=== PATIENT | female | born 1955 | race African-American/Black ===

== ENCOUNTER 2020-01-24 07:15 | Emergency (ER) | payer MEDICAID ==
[~2020-01-24] VITALS: Ht 165.1 cm; Wt 113.4 kg
[~2020-01-24 07:15] MED LIST: ATEN50TA PO; CARI250T PO; HYDR-4833 PO; LIS20T PO; METF-372 PO; OMEP20CA74 PO; PAR20T PO
[2020-01-24 07:29] VITALS: BP 137/65
[2020-01-24] MEDS ORDERED: KETOROLAC TROMETH 60MG/2ML VIAL IM ONE (08:15)
== END 2020-01-24 08:44 | disposition home or self-care (01) ==
LOC: ER 07:15
DX: M23.8X1 Other internal derangements of right knee (principal); M17.11 Unilateral primary osteoarthritis, right knee; F17.210 Nicotine dependence, cigarettes, uncomplicated; F41.9 Anxiety disorder, unspecified; J45.909 Unspecified asthma, uncomplicated; E11.9 Type 2 diabetes mellitus without complications; I10 Essential (primary) hypertension; Z90.49 Acquired absence of other specified parts of digestive tract; Z79.84 Long term (current) use of oral hypoglycemic drugs; Z79.899 Other long term (current) drug therapy
CPT/HCPCS: 73562; 96372; 99283; J1885

== ENCOUNTER 2021-03-17 11:39 | Emergency (ER) | payer MEDICAID ==
[~2021-03-17] VITALS: Ht 167.6 cm; Wt 112.0 kg
[2021-03-17 14:06] VITALS: BP 149/81
== END 2021-03-17 14:39 | disposition home or self-care (01) ==
LOC: ER 11:39
DX: S29.012A Strain of muscle and tendon of back wall of thorax, initial encounter (principal); S63.616A Unspecified sprain of right little finger, initial encounter; W01.0XXA Fall on same level from slipping, tripping and stumbling without subsequent striking against object, initial encounter; Y93.29 Activity, other involving ice and snow; Y92.89 Other specified places as the place of occurrence of the external cause; Y99.8 Other external cause status
CPT/HCPCS: 71101; 73130

== ENCOUNTER 2021-08-02 11:13 | Emergency (ER) | payer MEDICAID ==
[~2021-08-02] VITALS: Ht 167.6 cm; Wt 111.1 kg
[2021-08-02 14:33] VITALS: BP 166/76
[2021-08-02] MEDS ORDERED: HYDROcodone-ACET 10/325MG TAB PO ONE (15:00)
== END 2021-08-02 15:02 | disposition home or self-care (01) ==
LOC: ER 11:13
DX: S16.1XXA Strain of muscle, fascia and tendon at neck level, initial encounter (principal); M47.812 Spondylosis without myelopathy or radiculopathy, cervical region; I10 Essential (primary) hypertension; J45.909 Unspecified asthma, uncomplicated; G89.29 Other chronic pain; M54.9 Dorsalgia, unspecified; F17.210 Nicotine dependence, cigarettes, uncomplicated; Z90.49 Acquired absence of other specified parts of digestive tract; Z79.899 Other long term (current) drug therapy; X58.XXXA Exposure to other specified factors, initial encounter; Y93.89 Activity, other specified; Y92.89 Other specified places as the place of occurrence of the external cause; Y99.8 Other external cause status
CPT/HCPCS: 72040

== ENCOUNTER 2021-08-23 03:12 | Emergency (ER) | payer MEDICAID ==
[~2021-08-23] VITALS: Ht 167.6 cm; Wt 99.8 kg
[2021-08-23] MEDS ORDERED: hydrALAZINE HCL 20 MG/ML VL IV ONE ×2 (06:45→09:15)
[2021-08-23] MEDS ORDERED: SODIUM CHLORIDE 0.9% 1,000 ML IV ONE (06:45)
[2021-08-23 07:10] LABS: Basophils # (auto) 0.1 10 ^3/uL (0-0.2); Basophils % (auto) 1.2 % (0.0-2.0); Eosinophils # (auto) 0.3 10 ^3/uL (0-0.8); Eosinophils % (auto) 4.7 % (0.0-7.0); Hematocrit 35.7 % (36.0-46.0); Hemoglobin 11.9 g/dL (12.2-16.2); Lymphocytes % (auto) 32.5 % (10.0-50.0); Mean Corpuscular Hemoglobin 27.7 pg (28.0-32.0); Mean Corpuscular Hgb Conc. 33.4 g/dL (32.0-36.0); Mean Corpuscular Volume 82.9 fL (80.0-100.0); Monocytes # (auto) 0.4 10 ^3/uL (0-1.3); Monocytes % (auto) 6.9 % (0.0-12.0); Neutrophils # (auto) 3.3 10 ^3/uL (1.6-8.6); Neutrophils % (auto) 54.7 % (37.0-80.0); Nucleated Red Blood Cells % 0.2 %; Red Blood Cells 4.31 10^6/uL (4.0-5.20); Red Cell Distribution Width 15.5 % (11.8-14.3)
[2021-08-23 07:25] LABS: Albumin 3.3 g/dL (3.4-5.0); BUN/Creatinine Ratio 13.2; Calcium 8.8 mg/dL (8.5-10.1); Potassium 4.4 mmol/L (3.5-5.1)
[2021-08-23 07:27] LABS: Bilirubin, Total 0.5 mg/dL (0.2-1.0); Total Protein 7.1 g/dL (6.4-8.2)
[2021-08-23 07:45] LABS: Urine Bacteria NONE SEEN /hpf (None Seen); Urine Blood Negative /uL (Negative); Urine Specific Gravity 1.006 (1.001-1.035); Urine WBC <1 /hpf (0 - 5)
[2021-08-23] MEDS ORDERED: LABETALOL HCL 5 MG/ML 4ML SYRINGE IV ONE (09:15)
[2021-08-23 10:11] VITALS: BP 185/81
== END 2021-08-23 10:14 | disposition home or self-care (01) ==
LOC: EDUNIT# 03:12 → ER 03:12 → EDBD 03:12 → ER 10:14
DX: I10 Essential (primary) hypertension (principal); E11.9 Type 2 diabetes mellitus without complications; F17.210 Nicotine dependence, cigarettes, uncomplicated; J45.909 Unspecified asthma, uncomplicated; Z90.49 Acquired absence of other specified parts of digestive tract; Z79.899 Other long term (current) drug therapy
CPT/HCPCS: 36415; 71045; 80053; 81001; 84484; 85025; 85379; 96361; 96374; 96376; 99284; J0360; J7030

== ENCOUNTER 2022-06-18 07:29 | Emergency (ER) | payer MEDICAID ==
[~2022-06-18] VITALS: Ht 167.6 cm; Wt 110.3 kg
[2022-06-18 08:10] LABS: Basophils # (auto) 0 10 ^3/uL (0-0.2); Basophils % (auto) 0.5 % (0.0-2.0); Eosinophils # (auto) 0.2 10 ^3/uL (0-0.8); Eosinophils % (auto) 2.8 % (0.0-7.0); Hematocrit 41.8 % (36.0-46.0); Hemoglobin 14.1 g/dL (12.2-16.2); Lymphocytes # (auto) 1.8 10 ^3/uL (0.4-5.4); Lymphocytes % (auto) 25.1 % (10.0-50.0); Mean Corpuscular Hemoglobin 27.9 pg (28.0-32.0); Mean Corpuscular Hgb Conc. 33.7 g/dL (32.0-36.0); Monocytes # (auto) 0.5 10 ^3/uL (0-1.3); Monocytes % (auto) 7.2 % (0.0-12.0); Neutrophils # (auto) 4.6 10 ^3/uL (1.6-8.6); Neutrophils % (auto) 64.4 % (37.0-80.0); Nucleated Red Blood Cells % 0.3 %; Red Blood Cells 5.04 10^6/uL (4.0-5.20); Red Cell Distribution Width 14.6 % (11.8-14.3); White Blood Cell 7.2 10^3/uL (4.4-10.8)
[2022-06-18 08:28] LABS: Calcium 9.4 mg/dL (8.5-10.1); Potassium 3.5 mmol/L (3.5-5.1)
[2022-06-18 08:32] LABS: Bilirubin, Total 0.4 mg/dL (0.2-1.0); Total Protein 8.2 g/dL (6.4-8.2)
[2022-06-18 08:33] LABS: Urine Bacteria FEW /hpf (None Seen); Urine Blood TRACE /uL (Negative); Urine Specific Gravity 1.006 (1.001-1.035); Urine WBC <1 /hpf (0 - 5)
[2022-06-18 10:40] VITALS: BP 130/75
== END 2022-06-18 10:41 | disposition home or self-care (01) ==
LOC: ER 07:29
DX: R10.33 Periumbilical pain (principal); R11.2 Nausea with vomiting, unspecified; I10 Essential (primary) hypertension; E11.9 Type 2 diabetes mellitus without complications; J45.909 Unspecified asthma, uncomplicated; F17.210 Nicotine dependence, cigarettes, uncomplicated; Z79.899 Other long term (current) drug therapy
CPT/HCPCS: 36415; 74176; 80053; 81001; 83690; 84484; 85025; 93005

== ENCOUNTER 2023-12-27 07:52 | Emergency (ER) | payer MEDICARE, MEDICAID ==
[~2023-12-27] VITALS: Ht 167.6 cm; Wt 110.6 kg
[2023-12-27 08:17] VITALS: BP 141/74; PULSE 74; RESP 18; TEMP 98.4; O2SAT 96
[2023-12-27] MEDS ORDERED: SENN-58 PO (10:01)
[2023-12-27] MEDS: MAGNESIUM CITRATE SOLUTION 300 ML BTL PO ONE (10:13)
== END 2023-12-27 10:28 ==
LOC: ER 07:52
DX: K59.01 Slow transit constipation (principal); J45.909 Unspecified asthma, uncomplicated; E11.9 Type 2 diabetes mellitus without complications; I10 Essential (primary) hypertension; F17.210 Nicotine dependence, cigarettes, uncomplicated; Z90.49 Acquired absence of other specified parts of digestive tract
CPT/HCPCS: 74176

== ENCOUNTER 2024-06-19 11:14 | Inpatient (IN) | payer MEDICARE, MEDICAID ==
[~2024-06-19] VITALS: Ht 167.6 cm; Wt 107.0 kg
[~2024-06-19 11:14] MED LIST changes: +SENN-58 PO
--- NOTE | 2024-06-19 11:29 | ED.PDOC ---
HPI (NEURO) HPI Comments 68 y/o F, with PMHX of HTN, DM, WBW, ANXIETY, and ASTHMA BIBA presents to the ED for CC of dizziness. Per EMS, patient has been experiencing dizziness with associated right lower quadrant abdominal pain [id number]. Patient comments on current 8/10 pain. Patient denies weakness, fatigue, nausea, vomiting, or diarrhea. No other associated symptom's, modifiers, recent injuries or sick contacts at this time. Chief Complaint: Dizziness Time Seen by MD: 11:20 Primary Care Provider: UNKNOWN Reviewed Notes: Nurses Notes, Medical Transcription Radiology Notes, Medications, Allergies Information Source: Patient, Emergency Med Personnel Mode of Arrival: EMS Severity: Mild Headache Severity: None Timing: Months Duration: Since onset Prehospital treatment: None Circumstances: Spontaneous Symptoms: None History of: None Modifying factors: Nothing Associated Signs and Symptoms: None Past Medical History PAST MEDICAL HISTORY: Anxiety, Asthma, DM, HTN Surgical History: Cholecystectomy, SENIOR RESEARCH FELLOW History: No Pertinent SENIOR RESEARCH FELLOW History Family History Family History: Reviewed,noncontributory to illness, Family hx of HTN, Family hx of lung halina Social History Smoker: Cigarettes, Less Than 1 Pack/Day Alcohol: Occasionally Drugs: Denies Drug Use Lives In: Home Constitutional: denies: chills, diaphoresis, fatigue, fever, malaise, sweats, weakness, others EENTM: denies: blurred vision, double vision, ear bleeding, ear discharge, ear drainage, ear pain, ear ringing, eye pain, eye redness, hearing loss, mouth pain, mouth swelling, nasal discharge, nose bleeding, nose congestion, nose pain, photophobia, tearing, throat pain, throat swelling, voice changes, others Respiratory: denies: cough, hemoptysis, orthopnea, SOB at rest, shortness of breath, SOB with excertion, stridor, wheezing, others Cardiovascular: denies: chest pain, dizzy spells, diaphoresis, Dyspnea on exertion, edema, irregular heart beat, left arm pain, lightheadedness, palpitations, PND, syncope, others Gastrointestinal: reports: abdominal pain Genitourinary: denies: abnormal vagina bleeding, burning, dyspareunia, dysuria, flank pain, frequency, hematuria, incontinence, pain, , vagina discharge, urgency, others Neurological: reports: dizziness; denies: fainting, headache, left sided numbness, left sided weakness, numbness, paresthesia, pre-existing deficit, right sided numbness, right sided weakness, seizure, speech problems, tingling, tremors, weakness, others Musculoskeletal: denies: back pain, gout, joint pain, joint swelling, muscle pain, muscle stiffness, neck pain, others Integumetry: denies: bruises, change in color, change in hair/nails, dryness, laceration, lesions, lumps, rash, wounds, others Allergic/Immunocompromised: denies: Difficulty Healing, Frequent Infections, Hives, Itching, others Hematologic/Lymphatic: denies: anemia, blood clots, easy bleeding, easy brui sing, swollen glands, others Endocrine: denies: excessive hunger, excessive sweating, excessive thirst, ex cessive urination, flushing, intolerance to cold, intolerance to heat, unexplained weight gain, unexplained weight loss, others Psychiatric: denies: anxiety, bipolar disorder, depression, hopeless, panic disorder, schizophrenia, sleepless, suicidal, others All Other Systems: Reviewed and Negative Physical Exam General Appearance: Moderate Distress HEENT: Normal ENT Inspection, Pharynx Normal, TMs Normal Neck: Full Range of Motion, Non-Tender, Normal, Normal Inspection Respiratory: Other (Coarse breath sounds) Cardiovascular: No Edema, No JVD, No Murmur, No Gallop, Normal Peripheral Pulses, Regular Rate/Rhythm Breast Exam: Deferred Gastrointestinal: No Organomegaly, Non Tender, No Pulsatile Mass, Normal Bowel Sounds, Soft Genitalia: Deferred Pelvic: Deferred Rectal: Deferred Extremities: No calf tenderness, Normal capillary refill, Normal inspection, Normal range of motion, Non-tender, No pedal edema Musculoskeletal : Apperance: Normal Neurologic: Alert, engineering recruiter II-XII nml as Tested, No Motor Deficits, Normal Affect, Normal Mood, No Sensory Deficits Cerebellar Function: NOT DONE Reflexes: NOT DONE Skin: Dry, Normal Color, Warm Peripheral Pulses: 3+ Radial (R), 3+ Radial (L) Lymphatic: No Adenopathy Was a procedure done? Was a procedure done?: No Differential Diagnosis (SZ) Seizure: Psychogenic Seizure, Closed Head Injury, CVA/TIA, N/A General Weakness: N/A Headache: N/A X-Ray, Labs, Meds, VS Vital Signs Date Time Temp Pulse Resp B/P (MAP) Pulse Ox O2 Delivery O2 Flow Rate FiO2 06/19/24 12:35 98.2 75 16 157/77 (103) 98 98.2 06/19/24 12:20 75 16 98 Room Air* 0 21 06/19/24 11:17 75 06/19/24 11:16 98.2 76 16 190/100 (130) 98 Lab Test 06/19/24 11:45 Range/Units White Blood Count 6.0 4.4-10.8 10^3/uL Red Blood Count 4.94 4.0-5.20 10^6/uL Hemoglobin 13.3 12.2-16.2 g/dL Hematocrit 40.6 36.0-46.0 % Mean Corpuscular Volume 82.2 80.0-100.0 fL Mean Corpuscular Hemoglobin 27.0 L 28.0-32.0 pg Mean Corpuscular Hemoglobin Concent 32.8 32.0-36.0 g/dL Red Cell Distribution Width 15.2 H 11.8-14.3 % Platelet Count 240 140-450 10^3/uL Mean Platelet Volume 7.6 6.9-10.8 fL Neutrophils (%) (Auto) 65.0 37.0-80.0 % Lymphocytes (%) (Auto) 24.8 10.0-50.0 % Monocytes (%) (Auto) 6.2 0.0-12.0 % Eosinophils (%) (Auto) 3.3 0.0-7.0 % Basophils (%) (Auto) 0.7 0.0-2.0 % Neutrophils # (Auto) 3.9 1.6-8.6 10 ^3/uL Lymphocytes # (Auto) 1.5 0.4-5.4 10 ^3/uL Monocytes # (Auto) 0.4 0-1.3 10 ^3/uL Eosinophils # (Auto) 0.2 0-0.8 10 ^3/uL Basophils # (Auto) 0 0-0.2 10 ^3/uL Nucleated Red Blood Cells 0.1 % Sodium Level 140 136-145 mmol/L Potassium Level 4.0 3.5-5.1 mmol/L Chloride Level 105 98-107 mmol/L Carbon Dioxide Level 28 20-31 mmol/L Anion Gap 7 5-15 Blood Urea Nitrogen 12 9-23 mg/dL Creatinine 0.89 0.550-1.02 mg/dL Glomerular Filtration Rate Calc 71 >90 mL/min BUN/Creatinine Ratio 13.5 10.0-20.0 Serum Glucose 129 H 74-106 mg/dL Calcium Level 9.9 8.7-10.4 mg/dL Patient alert. Complaining of shortness a breath. Vitals stable. Answering questions pain She is also states that she has been having dizziness. No recent fall. Denies headache. Possible autonomic disorder. WBC within normal limits. Hemoglobin within normal limits. Explained to the patient. Continue monitoring. EKG reviewed does not show any acute changes. Time of 1ST Reevaluation: 11:50 Reevaluation 1ST: Unchanged Patient Education/Counseling: Diagnosis, Treatment Family Education/Counseling: No Family Present Additional Information I reviewed the following notes from patient's past medical history: 12/27/23 DX: CONSTIPATION DUE TO SLOW TRANSIT, DX: ACUTE ABD PAIN The following tests were ordered, and results were reviewed by me: CBC, UA, BMP, EKG Additional Information was gathered from interviewing the following independent historians: EMS I discussed treatment and results with medical personnel and: PATIENT Departure 1 Departure Time of Disposition: 15:44 Impression: Primary Impression: Autonomic disorder Disposition: ADMITTED INPATIENT Admit to: Med Surg Condition: Guarded Critical Care Note Critical Care Time?: No Stability Stability form required: No Heart Score Heart Score: Heart Score Response (Comments) Value History Slightly Suspicious 0 EKG Normal 0 Age >65 2 Risk Factors >3 or Hx ASHD 2 Troponin Normal limit 0 Total 4 I personally scribed for YING FIGUEROA MD ([email or web address]) on 06/19/24 at 11:29. Electronically submitted by Lo Lewis ([email or web address]). I personally scribed for YING FIGUEROA MD ([email or web address]) on 06/19/24 at 11:34. Electronically submitted by Lo Lewis ([email or web address]). YING FIGUEROA MD Jun 19, 2024 11:29
[2024-06-19 12:20] VITALS: PULSE 75; RESP 16; O2SAT 98
[2024-06-19 12:28] LABS: Basophils # (auto) 0 10 ^3/uL (0-0.2); Basophils % (auto) 0.7 % (0.0-2.0); Eosinophils # (auto) 0.2 10 ^3/uL (0-0.8); Eosinophils % (auto) 3.3 % (0.0-7.0); Hematocrit 40.6 % (36.0-46.0); Hemoglobin 13.3 g/dL (12.2-16.2); Lymphocytes # (auto) 1.5 10 ^3/uL (0.4-5.4); Lymphocytes % (auto) 24.8 % (10.0-50.0); Mean Corpuscular Hgb Conc. 32.8 g/dL (32.0-36.0); Mean Corpuscular Volume 82.2 fL (80.0-100.0); Monocytes # (auto) 0.4 10 ^3/uL (0-1.3); Monocytes % (auto) 6.2 % (0.0-12.0); Neutrophils # (auto) 3.9 10 ^3/uL (1.6-8.6); Nucleated Red Blood Cells % 0.1 %; Platelet Count (auto) 240 10^3/uL (140-450); Red Blood Cells 4.94 10^6/uL (4.0-5.20); Red Cell Distribution Width 15.2 % (11.8-14.3)
[2024-06-19 12:36] LABS: Chloride 105 mmol/L (98-107); Sodium 140 mmol/L (136-145)
[2024-06-19 12:37] LABS: Anion Gap 7 (5-15); Calcium 9.9 mg/dL (8.7-10.4); Carbon Dioxide 28 mmol/L (20-31)
[2024-06-19 12:42] LABS: BUN/Creatinine Ratio 13.5 (10.0-20.0); Blood Urea Nitrogen 12 mg/dL (9-23)
[2024-06-19 12:48] LABS: Glucose 129 mg/dL (74-106)
--- NOTE | 2024-06-19 15:17 | ECG ---
[facility] Test Date: 2024-06-19 Test Time: 11:17:10 Pat Name: BERHANE LOVELL Department: ED Room: [address] [place] [address] Gender: F Floatman: INDIRA : 1955 Requested By: YING FIGUEROA Order Number: [id number] Reading MD: Esau Ashford Measurements Intervals [place] Rate: 75 P: 27 AK: 176 QRS: 7 QRSD: 91 T: 36 QT: 406 QTc: 454 Interpretive Statements Sinus rhythm Probable left atrial enlargement LVH with secondary repolarization abnormality Electronically Signed On 06-19-2024 22:27:07 PST by Esau Ashford Please click the below link to view image of tracing.
--- NOTE | 2024-06-19 16:14 | DVH ---
CHEST RADIOGRAPH Indication: sob Technique: Single frontal view of the chest was obtained Comparison: CXRP on DOS: 08/23/21, CHEST PORTABLE on DOS: 08/23/21 FINDINGS: Lines and Tubes: None Lungs: No focal consolidation. 2.3 x 0.4 cm density overlying the right upper lung zone which may be external to the patient. Pleura: No effusion. No pneumothorax. Cardiomediastinal contours: Unremarkable Bones: No acute osseous abnormality. IMPRESSION: No acute cardiopulmonary disease. 2.3 x 0.4 cm density overlying the right upper lung zone which may be external to the patient. Recomm end clinical correlation.
[2024-06-19] MEDS ORDERED: DEXTROSE (50%) 50ML SYRG IV PRN (21:30)
--- NOTE | 2024-06-19 22:10 | DVH ---
INDICATION: abdominal pain TECHNIQUE: Graded compression technique along with Multiple real-time sonographic images were obtain ed for evaluation of the right lower quadrant. FINDINGS: The appendix was not visualized. No free fluid or lymph nodes are seen on this exam. IMPRESSION: Nonvisualization of the appendix, thus cannot exclude appendicitis.
[2024-06-19] MEDS: KETOROLAC TROMETH 30 MG/ML 1ML VIAL IV SCH (22:43)
[2024-06-19] MEDS: cefTRIAXone 1GM/50ML D5W 50 ML IV ONE (22:43)
[2024-06-19] MEDS: LISINOPRIL 20 MG TAB PO SCH (22:48)
[2024-06-19] MEDS: MECLIZINE HCL 25 MG TAB PO SCH (22:48)
[2024-06-19] MEDS: ACETAMINOPHEN 325 MG TAB PO SCH (22:49)
[2024-06-19] MEDS: ACCU-CHEK COMFORT CURVE STRIP VI SCH (22:51)
[2024-06-19] MEDS: InsuLIN REG 1unit/0.01ml Soln (100units/ml) SC SCH (22:52)
[2024-06-19 23:37] VITALS: PULSE 70; RESP 17; O2SAT 98
[2024-06-19 23:50] VITALS: BP 169/74; PULSE 70; RESP 18; TEMP 98; O2SAT 97
[2024-06-20] VITALS (9 sets, daily range): BP systolic 106–174; BP diastolic 55–84; PULSE 70–91; RESP 18–20; TEMP 97.9–98.4; O2SAT 96–100
[2024-06-20] MEDS ORDERED: GABA-1308 PO (00:19)
[2024-06-20] MEDS ORDERED: HYDR-4072 PO (00:19)
[2024-06-20] MEDS ORDERED: IBUP-1454 PO (00:19)
[2024-06-20] MEDS ORDERED: TIZA4TAB9 PO (00:19)
[2024-06-20 01:02] LABS: Urine Bacteria FEW /hpf (None Seen); Urine Blood TRACE /uL (Negative); Urine Clarity Turbid (Clear); Urine Color Yellow (Yellow); Urine Mucus FEW (None Seen); Urine Protein, UAD TRACE (Negative); Urine Specific Gravity 1.025 (1.001-1.035); Urine Squamous Epithelial Cell FEW /hpf (<5); Urine Urobilinogen Normal (Negative); Urine WBC 2 /HPF (0-5); Urine pH 5.5 (5.0-9.0)
[2024-06-20] MEDS: hydrALAZINE HCL 20 MG/ML VL IV ONE (01:15)
[2024-06-20 01:36] LABS: Amphetamine Screen, Urine Neg (NEGATIVE); Barbiturate Scree,Urine Neg (NEGATIVE); Benzodiazephine Screen, Urine Neg (NEGATIVE); Cannabinoid Screen, Urine Neg (NEGATIVE); Cocaine Screen, Urine Neg (NEGATIVE); Opiate Scree,Urine Neg (NEGATIVE); Phencyclidine Screen, Urine Neg (NEGATIVE)
--- NOTE | 2024-06-20 01:44 | DVHHPRES ---
History of Present Illness Resident Creating Document: DARWIN ANTHONY RESIDENT Reason for Visit: Hypertensive Urgency History of Present Illness A 68-year-old female with past medical history of hypertension and diabetes who came to the ED due to worsening of the dizziness, patient stated that she has been having dizziness for months but now it is getting worse, states that the room spinning and she is having difficulty to walk due to the imbalance and dizziness, also she stated that she is having ear infections and she had received antibiotics due to that. Patient also state that she has been having abdominal pain in the lower right quadrant for months as well but denied any other symptoms, denies any shortness of breath denies vomiting denies chest pain denies other symptoms denied dysuria Home meds: Atenolol carisoprodol gabapentin [place] ibuprofen lisinopril metformin omeprazole paroxetine senna tizanidine Review of Systems Constitutional: No: Fever, Chills, Sweats, Weakness, Malaise, Other Eyes: No: Pain, Vision change, Conjunctivae inflammation, Eyelid inflammation, Other, Redness ENT: No: Ear pain, Ear discharge, Nose pain, Nose discharge, Nose congestion, Mouth pain, Mouth swelling, Throat pain, Throat swelling, Other Respiratory: No: Cough, Dry, Shortness of breath, SOB with excertion, Wheezing, Hemoptysis, Pleuritic Pain, Sputum, Wheezing, Other Cardiovascular: No: Chest Pain, Palpitations, Orthopnea, Paroxysmal Noc. Dyspnea, Edema, Lt Headedness, Other Gastrointestinal: No: Nausea, Vomiting, Abdominal Pain, Diarrhea, Constipation, Melena, Hematochezia, Other Genitourinary: No Dysuria, No Frequency, No Incontinence, No Hematuria, No Ret ention, No Other Musculoskeletal: No: other, neck pain, shoulder pain, arm pain, back pain, hand pain, leg pain, foot pain Skin: No: Rash, Lesions, Jaundice, Bruising, Other Neurological: No: Weakness, Numbness, Incoordination, Change in speech, Confusion, Seizures, Other Allergies: Coded Allergies: NO KNOWN ALLERGIES (Unverified , 01/16/15) Medications Current Medications Medications Dose Ordered Sig/Solomon Route Start Time Stop Time Status Last Admin Dose Admin Lisinopril 20 mg DAILY PO 06/19/24 21:30 06/19/24 22:48 20 MG Diagnostic Test (Pha) 1 strip ACHS 06/19/24 22:00 06/19/24 22:51 1 STRIP Insulin Human Regular ACHS SC 06/19/24 22:00 Dextrose 50 ml UD PRN IV 06/19/24 21:30 Meclizine HCl 12.5 mg BID PO 06/19/24 22:00 06/19/24 22:48 12.5 MG Acetaminophen 325 mg Q4HP PO 06/19/24 21:45 06/19/24 22:49 325 MG Ketorolac Tromethamine 15 mg Q8HPRN IV 06/19/24 22:00 06/24/24 21:59 06/19/24 22:43 15 MG Hydralazine HCl 10 mg Q6HP PRN IV 06/19/24 23:45 Amlodipine Besylate 5 mg DAILY PO 06/20/24 10:00 Ceftriaxone Sodium 50 ml @ 100 mls/hr DAILY@09 IV 06/20/24 09:00 UNV Exam Vital Signs Vital Signs Date Time Temp Pulse Resp B/P (MAP) Pulse Ox O2 Delivery O2 Flow Rate FiO2 06/20/24 01:15 173/74 06/19/24 23:37 70 17 98 Room Air* 0 21 06/19/24 23:15 98.2 98.2 General Appearance: Alert, Oriented X3, Cooperative HEENT: Atraumatic, PERRLA, Other (right ear canal with wax, erithematous, tender at the entrance of the otoscopy) Respiratory: Clear to auscultation, Normal air movement Cardiovascular: Regular rate, Normal S1 Abdominal: Other (mild tenderness in the lower right abdomen, no CVA tenderness ) Extremities: No clubbing, No cyanosis, No edema Skin: No rashes, No breakdown, No significant lesion Neuro: Normal gait, Normal speech Psych/Mental Status: Mental status NL, Mood NL Labs/Xrays Labs Test 06/19/24 23:45 06/19/24 22:47 06/19/24 11:45 Range/Units Urine Color Yellow Yellow Urine Clarity Turbid H Clear Urine pH 5.5 5.0-9.0 Urine Specific [place] 1.025 1.001-1.035 Urine Protein Trace H Negative Urine Ketones Negative Negative Urine Blood Trace H Negative /uL Urine Nitrite Negative Negative Urine Bilirubin Negative Negative Urine Urobilinogen Normal Negative mg/dL Urine Leukocyte Esterase Negative Negative /uL Urine RBC 6 0 - 4 /hpf Urine Microscopic WBC 2 0-5 /HPF Urine Squamous Epithelial Cells Few <5 /hpf Urine Calcium Oxalate Crystals Mod None Seen Urine Bacteria Few H None Seen /hpf Urine Mucus Few None Seen Urine Glucose Normal Normal mg/dL POC Glucose 125 H 70-106 mg/dl White Blood Count 6.0 4.4-10.8 10^3/uL Red Blood Count 4.94 4.0-5.20 10^6/uL Hemoglobin 13.3 12.2-16.2 g/dL Hematocrit 40.6 36.0-46.0 % Mean Corpuscular Volume 82.2 80.0-100.0 fL Mean Corpuscular Hemoglobin 27.0 L 28.0-32.0 pg Mean Corpuscular Hemoglobin Concent 32.8 32.0-36.0 g/dL Red Cell Distribution Width 15.2 H 11.8-14.3 % Platelet Count 240 140-450 10^3/uL Mean Platelet Volume 7.6 6.9-10.8 fL Neutrophils (%) (Auto) 65.0 37.0-80.0 % Lymphocytes (%) (Auto) 24.8 10.0-50.0 % Monocytes (%) (Auto) 6.2 0.0-12.0 % Eosinophils (%) (Auto) 3.3 0.0-7.0 % Basophils (%) (Auto) 0.7 0.0-2.0 % Neutrophils # (Auto) 3.9 1.6-8.6 10 ^3/uL Lymphocytes # (Auto) 1.5 0.4-5.4 10 ^3/uL Monocytes # (Auto) 0.4 0-1.3 10 ^3/uL Eosinophils # (Auto) 0.2 0-0.8 10 ^3/uL Basophils # (Auto) 0 0-0.2 10 ^3/uL Nucleated Red Blood Cells 0.1 % Sodium Level 140 136-145 mmol/L Potassium Level 4.0 3.5-5.1 mmol/L Chloride Level 105 98-107 mmol/L Carbon Dioxide Level 28 20-31 mmol/L Anion Gap 7 5-15 Blood Urea Nitrogen 12 9-23 mg/dL Creatinine 0.89 0.550-1.02 mg/dL Glomerular Filtration Rate Calc 71 >90 mL/min BUN/Creatinine Ratio 13.5 10.0-20.0 Serum Glucose 129 H 74-106 mg/dL Calcium Level 9.9 8.7-10.4 mg/dL Assessment/Plan Assessment/Plan #Hypertensive urgency #Otitis media unresolved #Chronic Abdominal pain #Diabetes Admit Med/surg Lisinopril Amlodipine Hydralazine PRN Head CTscan Ceftriaxone due to otitis that unresolved after AB PO Meclizine Labs for tomorrow Case discussed with Dr Pitt Time spent on care 23 min Plan discussed with: Patient, Other My Orders Orders - DARWIN ANTHONY RESIDENT Procedure Category Date Status Time Admit ADMIT 06/19/24 Transmitted 21:25 Lisinopril Tablet PHA 06/19/24 In Process (Zestril Tablet) 21:30 Glucose Blood PHA 06/19/24 In Process (Accu-Chek Comfort 22:00 Insulin R (Human) PHA 06/19/24 In Process (Insulin R) 22:00 Dextrose 50% Syringe PHA 06/19/24 In Process 21:30 Drug Screen LAB 06/19/24 In Process 21:35 Meclizine Tablet PHA 06/19/24 In Process (Antivert Tablet) 22:00 Acetaminophen Tablet PHA 06/19/24 In Process (Tylenol Tablet) 21:45 Ketorolac Injection PHA 06/19/24 In Process (Toradol Injection) 22:00 Right Lower Quad US 06/19/24 Resulted 21:25 Consistent DIET 06/20/24 Transmitted Carb(Ccho)Diabetes Breakfast Hydralazine Injection PHA 06/19/24 In Process (Apresoline Inject 23:45 Amlodipine Tablet PHA 06/20/24 In Process (Norvasc Tablet) 10:00 Ceftriaxone 1gm/50ml PHA 06/20/24 Logged D5w (Rocephin) 09:00 Date of Service: Jun 19, 2024 Billing Provider: MIKE PITT MD Common Visit Codes: 68848-[id number] INP/OBS CARE (HIGH) Secondary Visit Codes: [id number] CARE PLAN 30 MINUTES DARWIN ANTHONY RESIDENT Jun 20, 2024 01:44 MIKE PITT MD Jun 20, 2024 11:32
[2024-06-20 03:08] LABS: Basophils # (auto) 0.1 10 ^3/uL (0-0.2); Basophils % (auto) 0.8 % (0.0-2.0); Eosinophils # (auto) 0.3 10 ^3/uL (0-0.8); Eosinophils % (auto) 3.2 % (0.0-7.0); Hematocrit 39.8 % (36.0-46.0); Lymphocytes # (auto) 2.8 10 ^3/uL (0.4-5.4); Lymphocytes % (auto) 32.5 % (10.0-50.0); Mean Corpuscular Hgb Conc. 32.6 g/dL (32.0-36.0); Mean Corpuscular Volume 82.6 fL (80.0-100.0); Monocytes # (auto) 0.6 10 ^3/uL (0-1.3); Monocytes % (auto) 7.1 % (0.0-12.0); Neutrophils # (auto) 4.9 10 ^3/uL (1.6-8.6); Neutrophils % (auto) 56.4 % (37.0-80.0); Nucleated Red Blood Cells % 0.1 %; Platelet Count (auto) 229 10^3/uL (140-450); Red Blood Cells 4.82 10^6/uL (4.0-5.20); Red Cell Distribution Width 15.2 % (11.8-14.3); White Blood Cell 8.7 10^3/uL (4.4-10.8)
[2024-06-20 03:33] LABS: Albumin 4.3 g/dL (3.2-4.8); Alkaline Phosphatase 59 U/L (46-116); Anion Gap 7 (5-15); BUN/Creatinine Ratio 16.7 (10.0-20.0); Bilirubin, Total 0.5 mg/dL (0.2-1.0); Blood Urea Nitrogen 14 mg/dL (9-23); Carbon Dioxide 27 mmol/L (20-31); Chloride 106 mmol/L (98-107); Potassium 3.7 mmol/L (3.5-5.1); Sodium 140 mmol/L (136-145)
[2024-06-20 03:34] LABS: Alanine Aminotransferase < 9 U/L (7-40); Aspartate Aminotransferase 11 U/L (13-40); Glucose 108 mg/dL (74-106); Lipase 64 U/L (12-53); Total Protein 6.8 g/dL (5.7-8.2)
[2024-06-20 07:30] LABS: Rapid Influenza A Negative (Negative); Rapid Influenza B Negative (Negative)
[2024-06-20 07:31] LABS: COVID19 ANTIGEN SOFIA FIA NEGATIVE (NEGATIVE)
--- NOTE | 2024-06-20 08:39 | DVH ---
EXAM: CT HEAD WITHOUT CONTRAST INDICATION: hypertesnive urgency and dizziness TECHNIQUE: CT of the head without intravenous contrast. Coronal and sagittal reformatted images are s ubmitted. Radiation Dose : 1. Head: CT Dose: CTDI volume is 59.31 mGy. Dose-length product is 950.71 mGy*cm The dose indicators for CT are the volume Computed Tomography (CT) Dose Index (CTDIvol) and the Dose Length Product (DLP), and are measured in units of mGy and mGy-cm, respectively. These indicators are not patient dose, but values generated from the CT scanner acquisition factors. The report includes radiation exposure data for exposures received during this examination. All CT scans at this medical facility are performed using dose modulation techniques as appropriate to a performed exam including the following: Automated exposure control was utilized; adjustment of the MA and/or KV according to patient size; and use of iterative reconstruction technique. COMPARISON: None FINDINGS: There is no evidence of acute intracranial hemorrhage, extra-axial collection, mass effect, midline s hift, herniation or hydrocephalus. There are periventricular and subcortical hypodensities, nonspecific, but likely reflecting sequelae of chronic microvascular ischemic changes. 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 The ventricles, sulci and cisterns are age appropriate. The vaca-white differentiation is intact. The visualized paranasal sinuses and mastoid air cells are clear. No depressed calvarial fracture. The surrounding soft tissues are unremarkable. IMPRESSION: 1. No evidence of acute intracranial hemorrhage or mass effect. 2. 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
[2024-06-20] MEDS: amLODIPine BESYLATE 5 MG TAB PO SCH (09:13)
[2024-06-20] MEDS: hydrALAZINE HCL 20 MG/ML VL IV PRN (12:20)
[2024-06-20] MEDS: ASPirin 81 mg TAB PO ONE (13:23)
[2024-06-20] MEDS: amLODIPine BESYLATE 5 MG TAB PO ONE (13:25)
[2024-06-20] MEDS: DOCUSATE SOD 100 MG CAP PO ONE (16:33)
[2024-06-20] MEDS: POLYETHYLENE GLYCOL 17 GM PWDR PO ONE (16:33)
[2024-06-20] MEDS: CHLORTHALIDONE 25 MG TAB PO ONE (16:34)
--- NOTE | 2024-06-20 17:39 | DVHPNRES ---
Progress Note Date Seen: Jun 20, 2024 Resident Creating Document: IRLANDA GEORGE RESIDENT Medical Necessity Reason Pt with a Central, PICC or Fol: No Subjective Review of Systems 68-year-old female with PMHx hypertension, diabetes mellitus type 2, nicotine dependence who presented to the ER with a chief complaint of dizziness for the past 1 month associated with decreased hearing from the right side. She also reports stuffy nose. She went to her PCP and was given some antibiotics, patient does not remember the name. She reports with moving her head or neck and standing up or walking gives her dizziness and she feels like the room is spinning. Review of system positive for constipation and back pain. PCP Dr. Borja Social history, lives with son and daughter, smokes 4 cigarettes daily Home meds: Atenolol carisoprodol gabapentin [place] ibuprofen lisinopril metformin omeprazole paroxetine senna tizanidine Patient seen and examined at the bedside. Objective vital signs Vital Sign Date Time Temp Pulse Resp B/P (MAP) Pulse Ox O2 Delivery O2 Flow Rate FiO2 06/20/24 16:45 98.3 82 18 152/68 (96) 100 98.3 06/20/24 08:00 Room Air* 0 21 Total Intake and Output 06/19/24 06/19/24 06/20/24 15:00 23:00 07:00 Intake Total 320 ml Balance 320 ml medications Current Medications Medications Dose Ordered Sig/Solomon Route Start Time Stop Time Status Last Admin Dose Admin Lisinopril 20 mg DAILY PO 06/19/24 21:30 06/20/24 09:12 20 MG Diagnostic Test (Pha) 1 strip ACHS 06/19/24 22:00 06/20/24 17:31 1 STRIP Insulin Human Regular ACHS SC 06/19/24 22:00 Dextrose 50 ml UD PRN IV 06/19/24 21:30 Meclizine HCl 12.5 mg BID PO 06/19/24 22:00 06/20/24 09:11 12.5 MG Acetaminophen 325 mg Q4HP PO 06/19/24 21:45 06/20/24 16:37 325 MG Ketorolac Tromethamine 15 mg Q8HPRN IV 06/19/24 22:00 06/24/24 21:59 06/20/24 12:15 15 MG Hydralazine HCl 10 mg Q6HP PRN IV 06/19/24 23:45 06/20/24 12:20 10 MG Ceftriaxone Sodium 50 ml @ 100 mls/hr Q24H IV 06/20/24 23:00 Amlodipine Besylate 10 mg DAILY PO 06/21/24 10:00 Chlorthalidone 12.5 mg DAILY@BREAKFAST PO 06/21/24 08:00 Aspirin 81 mg DAILY PO 06/21/24 10:00 Atorvastatin Calcium 40 mg HS PO 06/20/24 22:00 Docusate Sodium 100 mg BID PO 06/20/24 22:00 Examination Morbidly obese lying in bed, in no acute distress General: Obese, afebrile, palor, mucosae are moist. Right tympanic membrane is erythematous. Cardiovascular: Regular S1 and S2. No murmurs, gallops or rubs. No JVD elevation. No pedal edema Respiratory: Normal B/L air entry on room air. Clear lung sounds on auscultation Abdomen: Soft, nontender, nondistended, normoactive bowel sounds, no rebound tenderness, no organomegaly, no masses Genitourinary: Deferred MSK/skin: Mobilizes 4 limbs. Skin is dry and warm Neurological: No motor, no sensitive deficits, normal speech. Pupils are isocoric and reactive. Psych/Mental Status: A/Ox3 laboratory and microbiology Laboratory Tests 06/20/24 02:40 Test 06/20/24 02:40 Range/Units Serum Glucose 108 H 74-106 mg/dL Labs and/or images reviewed: Labs reviewed by me, Image(s) reviewed by me Problem List/Assessment/Plan Problem List/Assessment/Plan hypertensive urgency w/o EOD Uncontrolled hypertension Started lisinopril 20 mg and amlodipine 10 mg daily Chlorthalidone 12.5 mg started Dizziness Otitis [id number] IV ceftriaxone 1 g 06/20 daily Continue meclizine daily Orthostatic vital pending Old CVA CT scan showed Chronic appearing infarct in the left frontal lobe. Aspirin 81 mg atorvastatin 40 mg initiated Type 2 diabetes mellitus-hemoglobin A1c 6.7 On mild ISS Home medication gabapentin 100 mg TID resumed Morbidly obese Counseled regarding lifestyle modifications for more than 22 minutes Nicotine dependence Nicotine patch daily 7 mg GERD Pantoprazole 40 mg daily Goals of care discussed with patient for more than 22 minutes, full code status Plan discussed with patient in which all questions have been answered Case discussed with Dr. Negrete Plan discussed with: Patient My Orders My Orders Orders - IRLANDA GEORGE Procedure Category Date Status Time Orthostatic Vital ORDERS 06/20/24 Transmitted Signs 12:13 Orthostatic Vital ED NURSING 06/20/24 Transmitted Signs Chlorthalidone PHA 06/21/24 In Process (Chlorthalidone) 08:00 Aspirin Tablet PHA 06/21/24 In Process 10:00 Atorvastatin (Lipitor) PHA 06/20/24 In Process 22:00 Amlodipine Tablet PHA 06/21/24 In Process (Norvasc Tablet) 10:00 Docusate Sodium PHA 06/20/24 In Process Capsule (Colace 22:00 IRLANDA GEORGE RESIDENT Jun 20, 2024 17:39
[2024-06-20] MEDS: DOCUSATE SOD 100 MG CAP PO SCH (21:25)
[2024-06-20] MEDS: ATORVASTATIN 20 MG TAB PO SCH (21:26)
[2024-06-20] MEDS: GABAPENTIN 100 MG CAP PO SCH (21:26)
[2024-06-20] MEDS: cefTRIAXone 1GM/50ML D5W 50 ML IV SCH (23:29)
[2024-06-21] VITALS (9 sets, daily range): BP systolic 120–171; BP diastolic 59–88; PULSE 70–90; RESP 16–19; TEMP 98–98.6; O2SAT 95–99
[2024-06-21] MEDS: PANTOPRAZOLE 40 MG TAB PO SCH (05:13)
[2024-06-21 07:31] LABS: Chloride 106 mmol/L (98-107); Potassium 3.9 mmol/L (3.5-5.1); Sodium 140 mmol/L (136-145)
[2024-06-21 07:32] LABS: Anion Gap 7 (5-15); Carbon Dioxide 27 mmol/L (20-31)
[2024-06-21 07:33] LABS: Calcium 9.7 mg/dL (8.7-10.4)
[2024-06-21 07:37] LABS: Blood Urea Nitrogen 9 mg/dL (9-23)
[2024-06-21 07:38] LABS: Glucose 119 mg/dL (74-106); Lipase 45 U/L (12-53)
[2024-06-21] MEDS: ASPirin 81 mg TAB PO SCH (08:22)
[2024-06-21] MEDS: amLODIPine BESYLATE 5 MG TAB PO SCH (08:22)
[2024-06-21] MEDS: CHLORTHALIDONE 25 MG TAB PO SCH (08:25)
[2024-06-21] MEDS: PARoxetine 20 MG TAB PO SCH (10:00)
[2024-06-21] MEDS: ATENOLOL 25 MG TAB PO SCH (11:29)
[2024-06-21] MEDS: ACETAMINOPHEN 325 MG TAB PO SCH (13:17)
--- NOTE | 2024-06-21 14:14 | DVH ---
Carotid Duplex Clinical History: Dizziness history of stroke Comparison: None Technique: Duplex Doppler evaluation of the extracranial carotid and vertebral arteries including color Doppler and spectral/pulsed waveform analysis was performed. Findings: RIGHT SIDE: The peak systolic velocities are 69 cm/s in the CCA, 67 cm/s in the ICA. The ICA/CCA ratio is 1.0. V isually there is mild atherosclerosis of the carotid bulb. The external carotid artery is patent with peak systolic velocity of 80 cm/s proximally. There is appropriate antegrade flow in the right vertebral artery. LEFT SIDE: The peak systolic velocities are 59 cm/s in the CCA, 82 cm/s in the ICA. The ICA/CCA ratio is 1.4. V isually there is mild atherosclerosis at the carotid bulb. The external carotid artery is patent with peak systolic velocity of 52 cm/s proximally. There is appropriate antegrade flow in the left vertebral artery. IMPRESSION: No evidence of hemodynamically significant stenosis in the right or left carotid system. Reference: Radiology 2003; 229:340-346 Normal ICA PSV is <125 cm/sec and no plaque or intimal thickening is visible sonographically additional criteria include ICA/CCA PSV ratio <2.0 and ICA EDV <40 cm/sec <50% ICA stenosis ICA PSV is <125 cm/sec and plaque or intimal thickening is visible sonographically additional criteria include ICA/CCA PSV ratio <2.0 and ICA EDV <40 cm/sec 50-69% ICA stenosis ICA PSV is 125-230 cm/sec and plaque is visible sonographically additional criteria include ICA/CCA PSV ratio of 2.0-4.0 and ICA EDV of 40-100 cm/sec 70% ICA stenosis but less than near occlusion ICA PSV is >230 cm/sec and visible plaque and luminal narrowing are seen at vaca-scale and color Dopp ler ultrasound (the higher the Doppler parameters lie above the threshold of 230 cm/sec, the greater the likelihood of severe disease) additional criteria include ICA/CCA PSV ratio >4 and ICA EDV >100 cm/sec
--- NOTE | 2024-06-21 14:25 | DVHPNRES ---
Progress Note Date Seen: Jun 21, 2024 Resident Creating Document: IRLANDA GEORGE RESIDENT Medical Necessity Reason Pt with a Central, PICC or Fol: No Subjective Review of Systems 68-year-old female with PMHx hypertension, diabetes mellitus type 2, nicotine dependence who presented to the ER with a chief complaint of dizziness for the past 1 month associated with decreased hearing from the right side. She also reports stuffy nose. She went to her PCP and was given some antibiotics, patient does not remember the name. She reports with moving her head or neck and standing up or walking gives her dizziness and she feels like the room is spinning. Review of system positive for constipation and back pain. PCP Dr. Borja Social history, lives with son and daughter, smokes 4 cigarettes daily Home meds: Atenolol carisoprodol gabapentin [place] ibuprofen lisinopril metformin omeprazole paroxetine senna tizanidine Patient seen and examined at the bedside. Negative Abdirizak-Hallpike maneuver, ruled out BPPV. Carotid ultrasound ordered MRI brain ordered. Objective vital signs Vital Sign Date Time Temp Pulse Resp B/P (MAP) Pulse Ox O2 Delivery O2 Flow Rate FiO2 06/21/24 13:00 98.4 75 16 171/83 (112) 97 98.4 06/21/24 08:00 Room Air* 0 21 Total Intake and Output 06/20/24 06/20/24 06/21/24 15:00 23:00 07:00 Intake Total 760 ml 800 ml Output Total 800 ml Balance -40 ml 800 ml medications Current Medications Medications Dose Ordered Sig/Solomon Route Start Time Stop Time Status Last Admin Dose Admin Lisinopril 20 mg DAILY PO 06/19/24 21:30 06/21/24 08:24 20 MG Diagnostic Test (Pha) 1 strip ACHS 06/19/24 22:00 06/21/24 11:37 1 STRIP Insulin Human Regular ACHS SC 06/19/24 22:00 Dextrose 50 ml UD PRN IV 06/19/24 21:30 Meclizine HCl 12.5 mg BID PO 06/19/24 22:00 06/21/24 08:24 12.5 MG Ketorolac Tromethamine 15 mg Q8HPRN IV 06/19/24 22:00 06/24/24 21:59 06/21/24 13:16 15 MG Hydralazine HCl 10 mg Q6HP PRN IV 06/19/24 23:45 06/20/24 12:20 10 MG Ceftriaxone Sodium 50 ml @ 100 mls/hr Q24H IV 06/20/24 23:00 06/20/24 23:29 100 MLS/HR Amlodipine Besylate 10 mg DAILY PO 06/21/24 10:00 06/21/24 08:22 10 MG Chlorthalidone 12.5 mg DAILY@BREAKFAST PO 06/21/24 08:00 06/21/24 08:25 12.5 MG Aspirin 81 mg DAILY PO 06/21/24 10:00 06/21/24 08:22 81 MG Atorvastatin Calcium 40 mg HS PO 06/20/24 22:00 06/20/24 21:26 40 MG Docusate Sodium 100 mg BID PO 06/20/24 22:00 06/21/24 08:21 100 MG Gabapentin 100 mg BID PO 06/20/24 22:00 06/21/24 08:21 100 MG Paroxetine HCl 25 mg DAILY PO 06/21/24 10:00 Pantoprazole Sodium 40 mg DAILY@0600 PO 06/21/24 06:00 06/21/24 05:13 40 MG Atenolol 25 mg BID PO 06/21/24 10:00 06/21/24 11:29 25 MG Acetaminophen 650 mg Q6HP PO 06/21/24 12:00 06/21/24 13:17 650 MG Examination Morbidly obese lying in bed, in no acute distress General: Obese, afebrile, palor, mucosae are moist. Right tympanic membrane is erythematous. Negative Abdirizak-Hallpike maneuver. Cardiovascular: Regular S1 and S2. No murmurs, gallops or rubs. No JVD elevation. No pedal edema Respiratory: Normal B/L air entry on room air. Clear lung sounds on auscultation Abdomen: Soft, nontender, nondistended, normoactive bowel sounds, no rebound tenderness, no organomegaly, no masses Genitourinary: Deferred MSK/skin: Mobilizes 4 limbs. Skin is dry and warm Neurological: No motor, no sensitive deficits, normal speech. Pupils are isocoric and reactive. Psych/Mental Status: A/Ox3 laboratory and microbiology Laboratory Tests 06/21/24 06:57 06/20/24 02:40 Test 06/21/24 06:57 Range/Units Serum Glucose 119 H 74-106 mg/dL Labs and/or images reviewed: Labs reviewed by me, Image(s) reviewed by me Problem List/Assessment/Plan Problem List/Assessment/Plan hypertensive urgency w/o EOD Uncontrolled hypertension Started lisinopril 20 mg and amlodipine 10 mg daily Chlorthalidone 12.5 mg started Dizziness ? Rule out acute stroke Acute Otitis [id number] Ruled out BPPV IV ceftriaxone 1 g 06/20 daily Continue meclizine daily Orthostatic vital pending Garwood-Hallpike maneuver performed bilaterally twice, both times negative. Follow up with carotid ultrasound and MRI brain Old CVA CT scan showed Chronic appearing infarct in the left frontal lobe. Aspirin 81 mg atorvastatin 40 mg initiated Type 2 diabetes mellitus-hemoglobin A1c 6.7 On mild ISS Home medication gabapentin 100 mg TID resumed Morbidly obese Counseled regarding lifestyle modifications for more than 22 minutes Nicotine dependence Nicotine patch daily 7 mg GERD Pantoprazole 40 mg daily Goals of care discussed with patient for more than 22 minutes, full code status Plan discussed with patient in which all questions have been answered Case discussed with Dr. Lewis Plan discussed with: Patient My Orders My Orders Orders - IRLANDA GEORGE Procedure Category Date Status Time Docusate Sodium PHA 06/20/24 In Process Capsule (Colace 22:00 Gabapentin Capsule PHA 06/20/24 In Process (Neurontin Capsule) 22:00 Paroxetine Tablet PHA 06/21/24 In Process (Paxil Tablet) 10:00 Pantoprazole Tablet PHA 06/21/24 In Process (Protonix Tablet) 06:00 Atenolol Tablet PHA 06/21/24 In Process (Tenormin Tablet) 10:00 Orthostatic Vital ORDERS 06/21/24 Transmitted Signs 11:20 Orthostatic Vital ED NURSING 06/21/24 Transmitted Signs Communication Order ORDERS 06/21/24 Transmitted 11:20 Carotid Duplx W Color US 06/21/24 Resulted DOP 11:20 Acetaminophen Tablet PHA 06/21/24 In Process (Tylenol Tablet) 12:00 Brain Head Wo Contrast MRI 06/21/24 Logged 13:30 Date of Service: Jun 21, 2024 Billing Provider: MANDO LEWIS MD Common Visit Codes: [id number] INP/OBS CARE(HIGH) ALI,IRLANDASPARKLE FORBES Jun 21, 2024 14:25 MANDO LEWIS MD Jun 22, 2024 19:25
--- NOTE | 2024-06-21 17:07 | DVH ---
EXAM: MRI BRAIN HEAD WO CONTRAST CLINICAL HISTORY: [id number] dizziness, hx of stroke COMPARISON: CT head 06/20/2024 TECHNIQUE: Multiplanar, multisequence magnetic resonance imaging of the brain was performed without intravenous contrast. FINDINGS: 1.7 x 1.7 x 1.4 cm round area of T2/FLAIR hyperintensity over the left centrum semiovale which appear s isointense to cortex on T1 with internal lateral curvilinear area which follows CSF signal. There i s no diffusion restriction associated with the area. Normal brain volume information. Bilateral basal ganglia calcification. Mild chronic small-vessel isc hemic changes. No hemorrhages, midline shift, herniation or cytotoxic edema following a large vascular territory. No intra-axial or extra-axial fluid collections. No evidence of hydrocephalus. The basal cisterns are p atent. Visualized vascular flow voids are maintained. The pituitary gland, sella and parasellar regions unremarkable. The cerebellar tonsils are normal pos ition. The cerebellum is unremarkable. The orbits and globes are unremarkable. Paranasal sinuses and mastoids are clear. There are No worris ome calvarial lesions. IMPRESSION: No evidence of acute subacute infarct. 1.7 x 1.7 x 1.4 cm round area of T2/FLAIR hyperintensity over the left centrum semiovale which appear s isointense to cortex on T1 with internal lateral curvilinear area which follows CSF signal. Contras t-enhanced MRI is recommended to evaluate for possible intracranial lesion.
[2024-06-21] MEDS: FLEET ENEMA(ADULT) 135 ML PR ONE (23:54)
[2024-06-22 01:00] VITALS: BP 145/72; PULSE 63; RESP 18; TEMP 98.1; O2SAT 99
[2024-06-22 05:00] VITALS: BP 169/85; PULSE 72; RESP 18; TEMP 98.3; O2SAT 93
[2024-06-22 07:29] LABS: Anion Gap 9 (5-15); Carbon Dioxide 26 mmol/L (20-31); Chloride 105 mmol/L (98-107); Potassium 3.8 mmol/L (3.5-5.1); Sodium 140 mmol/L (136-145)
[2024-06-22 07:30] LABS: Calcium 9.7 mg/dL (8.7-10.4)
[2024-06-22 07:35] LABS: BUN/Creatinine Ratio 17.3 (10.0-20.0); Blood Urea Nitrogen 14 mg/dL (9-23)
[2024-06-22 07:56] LABS: Glucose 110 mg/dL (74-106)
[2024-06-22 08:00] VITALS: PULSE 72; RESP 18; O2SAT 93
[2024-06-22 09:00] VITALS: BP 151/78; PULSE 74; RESP 17; TEMP 97.9; O2SAT 100
--- NOTE | 2024-06-22 11:50 | DVHDSRES ---
Discharge Summary Date of Admission Resident Creating Document: IRLANDA GEORGE RESIDENT Jun 19, 2024 at 21:25 Date of Discharge: Jun 22, 2024 Admitting Diagnosis Acute dizziness, rule out stroke Labs/Diagnostic Data: Laboratory Results Test 06/22/24 11:12 06/22/24 06:26 06/21/24 06:57 06/20/24 07:00 POC Glucose 138 mg/dl (70-106) Sodium Level 140 mmol/L (136-145) Potassium Level 3.8 mmol/L (3.5-5.1) Chloride Level 105 mmol/L (98-107) Carbon Dioxide Level 26 mmol/L (20-31) Anion Gap 9 (5-15) Blood Urea Nitrogen 14 mg/dL (9-23) Creatinine 0.81 mg/dL (0.550-1.02) Glomerular Filtration Rate Calc 80 mL/min (>90) BUN/Creatinine Ratio 17.3 (10.0-20.0) Serum Glucose 110 mg/dL (74-106) Calcium Level 9.7 mg/dL (8.7-10.4) Lipase 45 U/L (12-53) Influenza Type A Antigen Negative (Negative) Influenza Type B Antigen Negative (Negative) SARS-CoV-2 Antigen (Rapid) Negative (NEGATIVE) Test 06/20/24 02:40 06/19/24 23:45 White Blood Count 8.7 10^3/uL (4.4-10.8) Red Blood Count 4.82 10^6/uL (4.0-5.20) Hemoglobin 13.0 g/dL (12.2-16.2) Hematocrit 39.8 % (36.0-46.0) Mean Corpuscular Volume 82.6 fL (80.0-100.0) Mean Corpuscular Hemoglobin 27.0 pg (28.0-32.0) Mean Corpuscular Hemoglobin Concent 32.6 g/dL (32.0-36.0) Red Cell Distribution Width 15.2 % (11.8-14.3) Platelet Count 229 10^3/uL (140-450) Mean Platelet Volume 7.5 fL (6.9-10.8) Neutrophils (%) (Auto) 56.4 % (37.0-80.0) Lymphocytes (%) (Auto) 32.5 % (10.0-50.0) Monocytes (%) (Auto) 7.1 % (0.0-12.0) Eosinophils (%) (Auto) 3.2 % (0.0-7.0) Basophils (%) (Auto) 0.8 % (0.0-2.0) Neutrophils # (Auto) 4.9 10 ^3/uL (1.6-8.6) Lymphocytes # (Auto) 2.8 10 ^3/uL (0.4-5.4) Monocytes # (Auto) 0.6 10 ^3/uL (0-1.3) Eosinophils # (Auto) 0.3 10 ^3/uL (0-0.8) Basophils # (Auto) 0.1 10 ^3/uL (0-0.2) Nucleated Red Blood Cells 0.1 % Hemoglobin A1c 6.7 % A1C (<5.7) Uric Acid 4.0 mg/dL (3.1-7.8) Total Bilirubin 0.5 mg/dL (0.2-1.0) Aspartate Amino Transferase (AST) 11 U/L (13-40) Alanine Aminotransferase (ALT) < 9 U/L (7-40) Alkaline Phosphatase 59 U/L (46-116) Troponin I High Sensitivity 16 ng/L (</=34) B-Type Natriuretic Peptide 17.35 pg/mL (0-100) Total Protein 6.8 g/dL (5.7-8.2) Albumin 4.3 g/dL (3.2-4.8) Thyroid Stimulating Hormone (TSH) 1.78 uIU/mL (0.55-4.78) Urine Color Yellow (Yellow) Urine Clarity Turbid (Clear) Urine pH 5.5 (5.0-9.0) Urine Specific [place] 1.025 (1.001-1.035) Urine Protein Trace (Negative) Urine Ketones Negative (Negative) Urine Blood Trace /uL (Negative) Urine Nitrite Negative (Negative) Urine Bilirubin Negative (Negative) Urine Urobilinogen Normal mg/dL (Negative) Urine Leukocyte Esterase Negative /uL (Negative) Urine RBC 6 /hpf (0 - 4) Urine Microscopic WBC 2 /HPF (0-5) Urine Squamous Epithelial Cells Few /hpf (<5) Urine Calcium Oxalate Crystals Mod (None Seen) Urine Bacteria Few /hpf (None Seen) Urine Mucus Few (None Seen) Urine Glucose Normal mg/dL (Normal) Urine Opiates Screen Neg (NEGATIVE) Urine Fentanyl Screen Neg (NEGATIVE) Urine Barbiturates Screen Neg (NEGATIVE) Urine Phencyclidine Screen Neg (NEGATIVE) Urine Amphetamines Screen Neg (NEGATIVE) Urine Benzodiazepines Screen Neg (NEGATIVE) Urine Cocaine Screen Neg (NEGATIVE) Urine Cannabinoids Screen Neg (NEGATIVE) Other Laboratory Tests 06/22/24 06:26 06/20/24 02:40 Brief Hx & Hospital Course: HPI- 68-year-old female with PMHx hypertension, diabetes mellitus type 2, nicotine dependence who presented to the ER with a chief complaint of dizziness for the past 1 month associated with decreased hearing from the right side. She also reports stuffy nose. She went to her PCP and was given some antibiotics, patient does not remember the name. She reports with moving her head or neck and standing up or walking gives her dizziness and she feels like the room is spinning. Review of system positive for constipation and back pain. Hospital course-patient came to the hospital due to dizziness. Patient was admitted to the hospital to rule out acute stroke. MRI of the brain-No evidence of acute subacute infarct. CT head-. No evidence of acute intracranial hemorrhage or mass effect.2. 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 Carotid Doppler- No evidence of hemodynamically significant stenosis in the right or left carotid system. CXR no acute cardiopulmonary disease. Patient was treated conservatively and symptoms improved. Patient was adamant about going home today. Patient was advised to follow up with the primary care physician in 1 week. Patient was also advised to keep a log of blood pressure and pulse rate so primary care physician can review. Patient was also advised to change body vision gradually to about any benign positional vertigo/orthostatic hypotension. Patient was also advised to follow up with the primary care physician in 1 week,, avoid dehydration. Patient verbalized understanding. Patient was hemodynamically stable on discharge. Diagnosis- hypertensive urgency w/o EOD Uncontrolled hypertension Suspected orthostatic hypotension Dizziness ? 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 Type 2 diabetes mellitus-hemoglobin A1c 6.7 Morbidly obese Nicotine dependence GERD Discharge plan- Please resume home medications Please follow up with the primary care physician in 1 week Please keep a record of your blood pressure and pulse rate so your primary care physician can review the chart Please avoid dehydration Please change your body position gradually to avoid positional hypotension or orthostatic hypotension Compression socks while walking around, does not have to be on while lying down on bed Operations or Procedures [address] [address] Ph: [phone] DIAGNOSTIC IMAGING Diagnostic Imaging Report : [id number] Signed PATIENT: BERHANE LOVELL ACCT: [id number] UNIT: [id number] : 1955 LOC: [facility] ROOM / BED: [facility] / A AGE / SEX: 68 / F ADM STATUS: ADM IN SERVICE 1330 ORDERING PHYSICIAN: IRLANDA GEORGE RESIDENT PROCEDURE(s): MBHL - BRAIN HEAD WO CONTRAST REASON: persostent dizziness, hx of stroke ORDER NUMBER(s): [id number], ACCESSION NUMBER(s): [id number] EXAM: MRI BRAIN HEAD WO CONTRAST CLINICAL HISTORY: [id number] dizziness, hx of stroke COMPARISON: CT head 06/20/2024 TECHNIQUE: Multiplanar, multisequence magnetic resonance imaging of the brain was performed without intravenous contrast. FINDINGS: 1.7 x 1.7 x 1.4 cm round area of T2/FLAIR hyperintensity over the left centrum semiovale which appears isointense to cortex on T1 with internal lateral curvilinear area which follows CSF signal. There is no diffusion restriction associated with the area. Normal brain volume information. Bilateral basal ganglia calcification. Mild chronic small-vessel ischemic changes. No hemorrhages, midline shift, herniation or cytotoxic edema following a large vascular territory. No intra-axial or extra-axial fluid collections. No evidence of hydrocephalus. The basal cisterns are patent. Visualized vascular flow voids are maintained. The pituitary gland, sella and parasellar regions unremarkable. The cerebellar tonsils are normal position. The cerebellum is unremarkable. The orbits and globes are unremarkable. Paranasal sinuses and mastoids are clear. There are No worrisome calvarial lesions. IMPRESSION: No evidence of acute subacute infarct. 1.7 x 1.7 x 1.4 cm round area of T2/FLAIR hyperintensity over the left centrum semiovale which appears isointense to cortex on T1 with internal lateral curvilinear area which follows CSF signal. Contrast-enhanced MRI is recommended to evaluate for possible intracranial lesion. ATED BY: CORIN GUERRERO DO DICTATED DATE/TIME: 06/21/241703 SIGNED BY: CORIN GUERRERO DO SIGNED DATE/TIME: 06/21/241703 CC: [place] [address] Ph: [phone] DIAGNOSTIC IMAGING Diagnostic Imaging Report : [id number] Signed PATIENT: BERHANE LOVELL ACCT: [id number] UNIT: [id number] : 1955 LOC: [facility] ROOM / BED: [address] [place] [address] AGE / SEX: 68 / F ADM STATUS: ADM IN SERVICE 19 ORDERING PHYSICIAN: IRLANDA GEORGE RESIDENT PROCEDURE(s): CARCL - CAROTID DUPLX W COLOR DOP REASON: Dizziness history of stroke ORDER NUMBER(s): [id number], ACCESSION NUMBER(s): [id number] Carotid Duplex Clinical History: Dizziness history of stroke Comparison: None Technique: Duplex Doppler evaluation of the extracranial carotid and vertebral arteries including color Doppler and spectral/pulsed waveform analysis was performed. Findings: RIGHT SIDE: The peak systolic velocities are 69 cm/s in the CCA, 67 cm/s in the ICA. The ICA/CCA ratio is 1.0. Visually there is mild atherosclerosis of the carotid bulb. The external carotid artery is patent with peak systolic velocity of 80 cm/s proximally. There is appropriate antegrade flow in the right vertebral artery. LEFT SIDE: The peak systolic velocities are 59 cm/s in the CCA, 82 cm/s in the ICA. The ICA/CCA ratio is 1.4. Visually there is mild atherosclerosis at the carotid bulb. The external carotid artery is patent with peak systolic velocity of 52 cm/s proximally. There is appropriate antegrade flow in the left vertebral artery. IMPRESSION: No evidence of hemodynamically significant stenosis in the right or left carotid system. Reference: Radiology 2003; 229:340-346 Normal ICA PSV is <125 cm/sec and no plaque or intimal thickening is visible sonographically additional criteria include ICA/CCA PSV ratio <2.0 and ICA EDV <40 cm/sec <50% ICA stenosis ICA PSV is <125 cm/sec and plaque or intimal thickening is visible sonographically additional criteria include ICA/CCA PSV ratio <2.0 and ICA EDV <40 cm/sec 50-69% ICA stenosis ICA PSV is 125-230 cm/sec and plaque is visible sonographically additional criteria include ICA/CCA PSV ratio of 2.0-4.0 and ICA EDV of 40-100 cm/sec 70% ICA stenosis but less than near occlusion ICA PSV is >230 cm/sec and visible plaque and luminal narrowing are seen at vaca-scale and color Doppler ultrasound (the higher the Doppler parameters lie above the threshold of 230 cm/sec, the greater the likelihood of severe disease) additional criteria include ICA/CCA PSV ratio >4 and ICA EDV >100 cm/sec ATED BY: DOROTHY MOSELEY DO DICTATED DATE/TIME: 06/21/24 141 SIGNED BY: DOROTHY MOSELEY DO SIGNED DATE/TIME: 06/21/24 141 CC: [place] [address] Ph: [phone] DIAGNOSTIC IMAGING Diagnostic Imaging Report : [id number] Signed PATIENT: BERHANE LOVELL ACCT: [id number] UNIT: [id number] : 1955 LOC: [facility] ROOM / BED: [facility] / A AGE / SEX: 68 / F ADM STATUS: ADM IN SERVICE 013 ORDERING PHYSICIAN: DARWIN ANTHONY RESIDENT PROCEDURE(s): HWOCT - HEAD WITHOUT CONTRAST REASON: hypertesnive urgency and dizziness ORDER NUMBER(s): [id number], ACCESSION NUMBER(s): [id number] EXAM: CT HEAD WITHOUT CONTRAST INDICATION: hypertesnive urgency and dizziness TECHNIQUE: CT of the head without intravenous contrast. Coronal and sagittal reformatted images are submitted. Radiation Dose : 1. Head: CT Dose: CTDI volume is 59.31 mGy. Dose-length product is 950.71 mGy*cm The dose indicators for CT are the volume Computed Tomography (CT) Dose Index (CTDIvol) and the Dose Length Product (DLP), and are measured in units of mGy and mGy-cm, respectively. These indicators are not patient dose, but values generated from the CT scanner acquisition factors. The report includes radiation exposure data for exposures received during this examination. All CT scans at this medical facility are performed using dose modulation techniques as appropriate to a performed exam including the following: Automated exposure control was utilized; adjustment of the MA and/or KV according to patient size; and use of iterative reconstruction technique. COMPARISON: None FINDINGS: There is no evidence of acute intracranial hemorrhage, extra-axial collection, mass effect, midline shift, herniation or hydrocephalus. There are periventricular and subcortical hypodensities, nonspecific, but likely reflecting sequelae of chronic microvascular ischemic changes. 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 The ventricles, sulci and cisterns are age appropriate. The vaca-white differentiation is intact. The visualized paranasal sinuses and mastoid air cells are clear. No depressed calvarial fracture. The surrounding soft tissues are unremarkable. IMPRESSION: 1. No evidence of acute intracranial hemorrhage or mass effect. 2. 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 ATED BY: KM WONG MD DICTATED DATE/TIME: 06/20/24836 SIGNED BY: KM WONG MD SIGNED DATE/TIME: 06/20/24836 CC: [place] [address] Ph: [phone] DIAGNOSTIC IMAGING Diagnostic Imaging Report : [id number] Signed PATIENT: BERHANE LOVELL ACCT: [id number] UNIT: [id number] : 1955 LOC: [facility]FLOW ROOM / BED: [facility] / A AGE / SEX: 68 / F ADM STATUS: ADM IN SERVICE 24 ORDERING PHYSICIAN: DARWIN ANTHONY RESIDENT PROCEDURE(s): RTLQD - RIGHT LOWER QUAD REASON: abdominal pain ORDER NUMBER(s): [id number], ACCESSION NUMBER(s): [id number] INDICATION: abdominal pain TECHNIQUE: Graded compression technique along with Multiple real-time sonographic images were obtained for evaluation of the right lower quadrant. FINDINGS: The appendix was not visualized. No free fluid or lymph nodes are seen on this exam. IMPRESSION: Nonvisualization of the appendix, thus cannot exclude appendicitis. ATED BY: ANTONIO VARGAS MD DICTATED DATE/TIME: 06/19/242206 SIGNED BY: ANTONIO VARGAS MD SIGNED DATE/TIME: 06/19/242206 CC: [place] [address] Ph: [phone] DIAGNOSTIC IMAGING Diagnostic Imaging Report : [id number] Signed PATIENT: BERHANE LOVELL ACCT: [id number] UNIT: [id number] : 1955 LOC: ER ROOM / BED: / AGE / SEX: 68 / F ADM STATUS: REG ER SERVICE 1546 ORDERING PHYSICIAN: YING FIGUEROA MD PROCEDURE(s): CXRP - CHEST PORTABLE REASON: sob ORDER NUMBER(s): [id number], ACCESSION NUMBER(s): [id number] CHEST RADIOGRAPH Indication: sob Technique: Single frontal view of the chest was obtained Comparison: CXRP on DOS: 08/23/21, CHEST PORTABLE on DOS: 08/23/21 FINDINGS: Lines and Tubes: None Lungs: No focal consolidation. 2.3 x 0.4 cm density overlying the right upper lung zone which may be external to the patient. Pleura: No effusion. No pneumothorax. Cardiomediastinal contours: Unremarkable Bones: No acute osseous abnormality. IMPRESSION: No acute cardiopulmonary disease. 2.3 x 0.4 cm density overlying the right upper lung zone which may be external to the patient. Recommend clinical correlation. ATED BY: CORIN GUERRERO DO DICTATED DATE/TIME: 06/19/24 161 SIGNED BY: CORIN GUERRERO DO SIGNED DATE/TIME: 06/19/241610 CC: Condition at Discharge: Stable Final Diagnosis/Problems List hypertensive urgency w/o EOD Uncontrolled hypertension Suspected orthostatic hypotension Dizziness ? 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 Type 2 diabetes mellitus-hemoglobin A1c 6.7 Morbidly obese Nicotine dependence Discharge Disposition: Home Discharge Instruct/Medications Diet: Consistent carbohydrate, Cardiac 2g Na,low cholest Activity: Light activity Follow Up/Referral: Please follow up with your primary care physician in 1 week Please keep a log of your blood pressure and pulse rate so primary care physician can reviewed chart Please gradually change in position to avoid benign positional vertigo Please avoid dehydration Medications: Meclizine 12.5 mg by mouth 2 times a day for 7 days as needed Please resume home medications as recommended by primary care physician Please resume home medications Please follow up with the primary care physician in 1 week Please keep a record of your blood pressure and pulse rate so your primary care physician can review the chart Please avoid dehydration Please change your body position gradually to avoid positional hypotension or orthostatic hypotension Compression socks while walking around, does not have to be on while lying down on bed Discharge Statement: "Patient was advised to return to the ER or call 911 if any headaches, dizziness, shortness of breath, chest pain, abdominal pain, bleeding, fevers, or worsening of medical condition. Patient was counseled about treatment plan, medications, possible side effects, patientverbalized understanding. All questions were answered to the best of my ability. This discharge took greater then 30 minutes in planning, reviewing documentation, counseling the patient, and discussing with other team members." ASSESSMENT ASSESSMENT Assessment hypertensive urgency w/o EOD Uncontrolled hypertension Suspected orthostatic hypotension Dizziness Ruled out acute stroke, likely orthostatic hypotension Acute Otitis [id number] Ruled out BPPV Date of Service: Jun 22, 2024 Billing Provider: MANDO LEWIS MD Common Visit Codes: 67414-ZZI/OBS DISCH DAY >30min TEO SILVA RESIDENT Jun 22, 2024 11:50 MANDO LEWIS MD Jun 22, 2024 19:25
[2024-06-22] MEDS ORDERED: MECL12.586 PO (12:40)
[2024-06-22] MEDS ORDERED: TRAM50TA2 PO (13:14)
[2024-06-22 14:00] VITALS: BP 145/60; PULSE 62; RESP 16; TEMP 98.1; O2SAT 99
[2024-06-22 15:36] VITALS: BP 145/67; PULSE 74; RESP 17; TEMP 97.9; O2SAT 100
== END 2024-06-22 16:39 | disposition home or self-care (01) | DRG 312 ==
LOC: EDBD 11:14 → ER 11:14 → OVERFLOW 21:25 → WEST WING 21:35
PROVIDERS: ADMIT Student in an Organized Health Care Education/Training Program; ATTEND Emergency Medicine
DX: I95.1 Orthostatic hypotension (principal); I16.0 Hypertensive urgency; H66.91 Otitis media, unspecified, right ear; E11.9 Type 2 diabetes mellitus without complications; I10 Essential (primary) hypertension; K21.9 Gastro-esophageal reflux disease without esophagitis; E66.01 Morbid (severe) obesity due to excess calories; F17.210 Nicotine dependence, cigarettes, uncomplicated; G90.89 Other disorders of autonomic nervous system; Z20.822 Contact with and (suspected) exposure to COVID-19; F41.9 Anxiety disorder, unspecified; J45.909 Unspecified asthma, uncomplicated; Z90.49 Acquired absence of other specified parts of digestive tract; Z86.73 Personal history of transient ischemic attack (TIA), and cerebral infarction without residual deficits; Z68.38 Body mass index [BMI] 38.0-38.9, adult
CPT/HCPCS: 36415; 70450; 70551; 71045; 76705; 80048; 80053; 80307; 81001; 82962; 83036; 83690; 83880; 84443; 84484; 84550; 85025; 87426; 87804; 93005; 93886; G0378; J1885